=== PATIENT | male | born 1930 | race African-American/Black ===

== ENCOUNTER 2016-10-27 16:53 | Emergency (ER) | payer OTHER ==
[~2016-10-27] VITALS: Ht 170.2 cm; Wt 78.5 kg
[~2016-10-27 16:53] MED LIST: ANTACID650 MG PO; ASPIRIN325 PO; CALCITRIOL0.25 MCG PO; CELEXA 10 MG TA10 M1 PO; CELEXA10 MG PO; COREG3.125 MG PO; COREG6.25 MG PO; LANTUS; MAGNESIUM-VIT1 EACH PO; NORVASC10 MG PO; NOVOLOG100 UNIT/1; NOVOLOG100 UNIT/1 SQ; PROCRIT20000 UNIT IJ; PROTONIX40 M2 PO; RENAL CAPS SOFTG1 MG PO; TOPROL XL25 MG PO; VITAMIN D-32000 UNIT PO; ZOFRAN ODT4 MG PO
[2016-10-27 17:56] LABS: ABSOLUTE NEUTROPHILS 4.1 thou/uL (1.4-8.2); BASOPHILS 0.5 % (0.0-2.0); HEMATOCRIT 30.2 % (42.0-52.0); LYMPHOCYTES 16.1 % (24.0-44.0); MCH 28.1 pg (26.0-34.0); MCHC 33.1 % (28.0-37.0); MONOCYTES 7.6 % (1.0-8.0); PLATELET COUNT 234 thou/uL (150-400); POLYS 69.8 % (36.0-66.0); RBC 3.55 mil/uL (4.50-6.00); RDW 14.5 % (10.5-14.5); WBC 5.9 thou/uL (4.0-11.0)
[2016-10-27 18:00] LABS: MANUAL DIFF NO
[2016-10-27 18:05] LABS: CALCIUM 8.8 mg/dL (8.5-10.1); CREATININE 4.6 mg/dL (0.6-1.3); POTASSIUM 5.1 mmol/L (3.5-5.1)
[2016-10-27 18:46] LABS: URINE BILIRUBIN NEGATIVE (Negative); URINE BLOOD 2+ (Negative); URINE COLOR YELLOW; URINE GLUCOSE-RANDOM* 1+ (Negative); URINE KETONES NEGATIVE (Negative); URINE LEUKOCYTES-REFLEX 2+ (Negative); URINE PROTEIN (DIPSTICK) 2+ (Negative); URINE UROBILINOGEN 0.2 E.U./dl (0.2-1.0)
[2016-10-27 18:51] LABS: CASTS None Seen /LPF (None Seen); SQUAMOUS 0-3 Few /LPF (0-3)
[2016-10-27 18:52] LABS: CRYSTALS None Seen /LPF (None Seen); URINE RBC 3-10 Few /HPF (0-2)
[2016-10-27] MEDS ORDERED: CIPRO500 MG PO (19:05)
[2016-10-27 19:28] VITALS: BP 168/52
[2016-12-21] MEDS ORDERED: CELEXA10 MG PO (11:41)
[2016-12-21] MEDS ORDERED: NOVOLOG100 UNIT/1 SUBQ (11:42)
[2016-12-21] MEDS ORDERED: FOLIC ACID1 MG PO ×2 (11:42→11:47)
[2016-12-21] MEDS ORDERED: ANTACID650 MG PO (11:42)
[2016-12-21] MEDS ORDERED: MAGOX 400400 MG PO (11:44)
[2016-12-21] MEDS ORDERED: COREG6.25 MG PO (11:47)
[2016-12-21] MEDS ORDERED: PROTONIX40 M1 PO (11:47)
[2016-12-21] MEDS ORDERED: COSOPT EYE DROPS5 ML OP (11:48)
[2016-12-21] MEDS ORDERED: PRED FORTE 1% EY5 M1 OP (11:48)
[2016-12-21] MEDS ORDERED: XALATAN2.5 ML OPHTHALMIC (11:49)
[2016-12-21] MEDS ORDERED: ALPHAGAN P10 ML OP (11:49)
[2016-12-21] MEDS ORDERED: MAGNESIUM-VIT1 EACH PO (18:19)
[2016-12-21] MEDS ORDERED: CALCITRIOL0.25 MCG PO (18:20)
[2016-12-21] MEDS ORDERED: RENAL CAPS SOFTG1 MG PO (18:23)
[2016-12-24] MEDS ORDERED: LEVEMIR (15:22)
== END 2016-10-27 19:30 | disposition home or self-care (01) ==
LOC: ER 16:53
PROVIDERS: Emergency Medicine; Nurse Practitioner
DX: N39.0 Urinary tract infection, site not specified (principal); K21.9 Gastro-esophageal reflux disease without esophagitis; N28.9 Disorder of kidney and ureter, unspecified; E11.9 Type 2 diabetes mellitus without complications; I10 Essential (primary) hypertension; Z90.89 Acquired absence of other organs

== ENCOUNTER 2016-11-04 14:38 | Inpatient (IN) | payer OTHER ==
[~2016-11-04] VITALS: Ht 175.3 cm; Wt 77.6 kg
--- NOTE | ~2016-11-04 | EKG ---
[address] [address] ELECTROCARDIOGRAM REPORT Name: LOGAN BOWER [id number] Admission: 11/04/16 Attend Phys: Discharge: Date of : [birth year] Report #: [id number] THIS REPORT FOR: //name// [facility] ED Test Date: 2016-11-04 Test Time: 15:22:48 Pat Name: LOGAN BOWER Department: Room: Gender: Retail Manager: duane : 1930 Requested By: Viky Silva Order Number: [id number] MD: Ang Balderrama Measurements Intervals [place] Rate: 75 P: 55 AL: 212 QRS: 24 QRSD: 137 T: 99 QT: 457 QTc: 511 Interpretive Statements Sinus rhythm Borderline prolonged AL interval Nonspecific intraventricular conduction delay Nonspecific repol abnormality, diffuse leads No previous ECG available for comparison Electronically Signed On 11-04-2016 16:51:32 CLINICAL LABORATORY AIDES TEACHER by Ang Balderrama [email or web address] <ELECTRONICALLY SIGNED> By: Ang Balderrama MD 11/04/16 1651 1522 1522 MD RAHUL Smith
--- NOTE | ~2016-11-04 | EKG ---
[address] [address] ELECTROCARDIOGRAM REPORT Name: LOGAN BOWER Room #: 303- ADM IN M.R.#: [id number] Admission: 11/04/16 Attend Phys: Alyssa Sigala MD Discharge: Date of : [birth year]/17/[birth year] Report #: [id number] THIS REPORT FOR: //name// [facility] Test Date: 2016-11-05 Test Time: 09:21:35 Pat Name: LOGAN BOWER Department: Room: 303 Gender: M Ice Hockey Coach: graeme : 1930 Requested By: Alyssa Sigala Order Number: [id number] MD: Ang Balderrama Measurements Intervals [place] Rate: 75 P: MT: QRS: 9 QRSD: 96 T: 132 QT: 464 QTc: 519 Interpretive Statements Normal sinus rhythm No ischemia Electronically Signed On 11-05-2016 14:20:57 CRIMINAL RECORDS TECHNICIAN by Ang Balderrama [email or web address] <ELECTRONICALLY SIGNED> By: Ang Balderrama MD 11/05/16 1420 0921 0921 MD RAHUL Smith
--- NOTE | ~2016-11-04 | S ---
[facility] [address] [address] SURGICAL PATH RPT PROCEDURE Name: CHRIS OSMANTARAS Fang Room #: 303-P DIS IN M.R.#: [id number] Admission: 11/04/16 Date of : [birth year] Discharge: 11/05/16 Report #: [id number] Path Case #: [id number] PATHOLOGY REPORT COLLECTION DATE: 12/23/2016 RECEIVED DATE: 12/23/2016 SUBMITTING PHYS: Dr. Becca Corey OTHER PHYS: Dr. Alyssa Gilmore SPECIMEN(S) RECEIVED: A.Gastric polyp B.Random gastric bx - distal C.Random gastric bx - proximal * * * * * * * * * * * * FINAL DIAGNOSIS: A. Polyp, gastric polyp, endoscopic biopsy: - Compatible with a hyperplastic and fundic gland polyp. - Negative for dysplasia. B. Gastric mucosa, distal random gastric, endoscopic biopsy: - Mild reactive gastropathy. - One fragment compatible with a fundic gland polyp. - Negative for intestinal metaplasia or atrophy. - Negative for Helicobacter pylori. C. Gastric mucosa, proximal random gastric, endoscopic biopsy: - Dilated fundic glands, compatible with fundic gland polyp. - One fragment showing hyperplastic changes along with mild reactive gastropathy. - Negative for intestinal metaplasia or atrophy. - Negative for Helicobacter pylori. COMMENT: Helicobacter pylori immunohistochemical stain performed on block B1 negative. Helicobacter pylori immunohistochemical stain performed on block C1 negative. (IUV:brennan; d/t: 12/24/2016) PATHOLOGIST: Germaine Cartagena M.D. REPORT ELECTRONICALLY SIGNED BY: Germaine Cartagena M.D. DATE/TIME: 12/24/2016 14:49 * * * * * * * * * * * * GROSS PATHOLOGY: [address] [address] SURGICAL PATH RPT PROCEDURE Name: JOSI OSMANMARINA Fang Room #: 303-P [facility] IN [facility].#: [id number] Admission: 11/04/16 Date of : [birth year] Discharge: 11/05/16 Report #: [id number] Path Case #: [id number] A. Received in formalin labeled "Logan Osman Sr and gastric polyp," is a segment of knutson soft tissue measuring 0.5 cm in maximum dimension. The specimen is submitted entirely in cassette A1. B. Received in formalin labeled "Logan Osman Sr and is distal random gastric bx," are 6 segments of knutson soft tissue measuring 2.3 x 0.3 x 0.2 cm in aggregate dimensions and ranging from 0.2 to 0.7 cm in maximum dimension. The specimen is submitted entirely in cassette B1. C. Received in formalin labeled "Logan Osman Sr and proximal random gastric bx," are 2 segments of knutson soft tissue measuring 1.0 x 0.2 x 0.2 cm in aggregate dimensions and measuring 0.2 and 0.8 cm in maximum dimension. The specimen is submitted entirely in cassette C1. (TTL; 12/23/2016) CLINICAL HISTORY: Pre-op diagnosis: Hematemesis post-op diagnosis: Duodenal AVM, gastric AVM, gastric INITIAL CPT CODE(S): A; 61493 B; 00809, 31485 C; 70766, 99270 Professional services performed by [facility] at [facility] [address], [place] [address] Technical services performed by [facility] at [address] [place] [address], [address], [place] [address]. [facility] [address] [place] [address] PHONE: [phone] DIRECTOR: Roman Ricketts M.D. * * * END OF REPORT * * *
--- NOTE | ~2016-11-04 | H ---
[facility] [place] [address] [place] [address] HISTORY AND PHYSICAL Name: BOWERCHRISLOGAN P Room #: 303-P ADM IN M.R.#: [id number] Admission: 11/04/16 Attend Phys: Alyssa Sigala MD Discharge: Date of : [birth year]/17/[birth year] Report #: [id number] THIS REPORT FOR: //name// CC: Lorne Sigala DATE OF SERVICE: 11/04/2016 TYPE OF DICTATION: Admission H and P after [id number]-vv-vuik encounter. DATE OF SERVICE: I did see the patient and examined him on the day of admission, 11/04/2016. CHIEF COMPLAINT: Mental status change. HISTORY OF PRESENT ILLNESS: An 85-year-old male who has multiple medical problems, was brought to the ER by his daughter. She stated that he has some changes in his mentality, he is not responding well to her like before, he is not able to talk. She suspected that he may have a CVA. She stated that the patient has a chronic kidney disease and he is refusing dialysis until now, and he had UTI a week ago and was treated for that. He responded very well, but he started to have some mental status change recently. The patient is not so talkative. He is just sleepy, but he denies any pain. He is not interactive. REVIEW OF SYSTEMS: Except that mentioned in HPI, all other systems are negative. PAST MEDICAL HISTORY: Includes CKD stage 5, repeated UTIs, hypertension, depression, B12 deficiency, insulin dependent diabetes mellitus. MEDICATIONS: See admission reconciliation sheet. ALLERGIES: No known drug allergies. SOCIAL HISTORY: He lives with his daughter. He does not smoke, drink or use any illicit drugs. PHYSICAL EXAMINATION: GENERAL: He is sleepy. VITAL SIGNS: Temperature 36.6, pulse 80, respirations 14, blood pressure 193/95. HEENT: PERRLA. Intact extraocular muscles. No icterus. NECK: Supple, no JVD, no bruit, no thyroid. CHEST: Good air entry both sides. Normal respiratory effort. CARDIOVASCULAR: Regular rate and rhythm. No murmur, rub or gallop. ABDOMEN: Lax, nontender. Positive bowel sounds. No organomegaly appreciated. [facility] [address] [place] [address] HISTORY AND PHYSICAL Name: LOGAN BOWER Room #: [address] [place] [address] [place] [facility].#: [id number] Admission: 11/04/16 Attend Phys: Alyssa Sigala MD Discharge: Date of : [birth year]/17/[birth year] Report #: [id number] EXTREMITIES: No cyanosis, clubbing or edema. NEUROLOGIC: He has weakness of the lower extremities. The patient is wheelchair bound. LABORATORY DATA: Urine is negative but there are some bacteria. White count 12.9, hemoglobin 9.7, hematocrit 29.7, platelets 218 with sodium 136, potassium 5.3, chloride 102, carbon dioxide 28, anion gap 6, BUN 55, creatinine 5.4, glucose , calcium 8.9. AST 19, ALT 22. Troponin less than 0.04. ProBNP is . Total protein 6.5, albumin 3.2. ASSESSMENT AND PLAN: 1. Mental status change. The etiology is not clear, but it can be secondary to his kidney function or hidden infection, so we are going to admit the patient to telemetry, monitor him closely, and we are going to follow his status. 2. Chronic kidney disease stage 5. His creatinine is 5.3. The patient declines any hemodialysis until now, so we are going to consult our security advisor to see the patient and evaluate him. 3. Hyperkalemia. His potassium is 5.3. We are going to recheck the level and treat him as needed. 4. The patient is DNR. 5. Gastrointestinal and deep venous thrombosis prophylaxis. <ELECTRONICALLY SIGNED> By: Alyssa Sigala MD 11/05/16 1438 15 0115 Alyssa Sigala MD /nt
--- NOTE | ~2016-11-04 | D ---
[facility] [place] [address] DISCHARGE SUMMARY Name: SATHISHCHRISLOGAN P Room #: 303-P [facility] IN ..#: [id number] Admission: 11/04/16 Attend Phys: Alyssa Sigala MD Discharge: 11/05/16 Date of : [birth year] Report #: [id number] THIS REPORT FOR: //name// CC: Lorne Sigala DATE OF SERVICE: 11/05/2016 TYPE OF DICTATION: Discharge summary. After vebm-[id number]-qpru encounter, I did see the patient and examined him on the day of discharge, 11/05/2016. DISCHARGE DIAGNOSES: 1. Mental status change. 2. End-stage renal disease. 3. Repeated urinary tract infection. 4. Hypertension. 5. Depression. 6. B12 deficiency. 7. Insulin-dependent diabetes mellitus. DISCHARGE MEDICATIONS: See discharge summary. HOSPITAL COURSE: The patient was admitted to the hospital secondary to mental status change which was seen by his daughter ____ during the last week. The patient had UTI a week ago, treated, became well and then he started to be drowsy and lethargic. The patient was admitted to the hospital. His labs were negative except for end-stage renal disease with creatinine 5.3, but at this point the daughter expressed her dad's wishes not to be dialyzed and to at home. So, she opted to go home with hospice for her dad and not to do any aggressive treatments or aggressive thing. DISPOSITION: So, the patient is going home on hospice service. <ELECTRONICALLY SIGNED> By: Alyssa Sigala MD 11/06/16 0930 1302 1356 Alyssa Sigala MD /nt
--- NOTE | ~2016-11-04 | HC ---
[facility] [place] [address] CONSULTATION Name: LOGAN BOWER Leoncio Room #: 303-P ADM IN M.R.#: [id number] Admission: 11/04/16 Attend Phys: Alyssa Sigala MD Discharge: Date of : [birth year]/17/[birth year] Report #: [id number] THIS REPORT FOR: //name// CC: Lorne Sigala DATE OF SERVICE: 11/05/2016 REASON FOR CONSULTATION: Stage 5 chronic kidney disease. HISTORY OF PRESENT ILLNESS: This is an 85-year-old male who has a long-term history of chronic kidney disease, which has gradually progressed. He has been followed in our office for many years by Lyle Gray MD. I have reviewed Dr. Gray's records. I would also note that I had seen the patient in consultation here at [facility] in 07/2015. The current history is obtained from the patient's daughter who was at the bedside. He is poorly responsive and unable to provide me any history. The daughter tells me he has been slowly declining over the past couple of months. He has been less active. He has been more somnolent. Although he occasionally awakens, over the past week or 2, he has not been able to carry on any conversations. Intake of food and fluids has been decreased. He did have problems a couple of weeks ago with some gross hematuria and urinary tract infection with findings of E. coli. He went through a course of Cipro and hematuria has cleared up. He is still voiding some urine. His daughter also describes to me episodes of myoclonic jerking that is episodic. She has also noticed some irregular, respirations. The daughter is very clear in stating that she has had previous conversations with her father about his wishes. She also provides a healthcare directive. He has for a very long period of time insisted that he did not want to undergo hemodialysis therapy or dialysis therapy of any kind. He has wished for comfort care at the end of life. He had told her he wants to at home with the help of hospice for comfort. PAST MEDICAL HISTORY: Progressive chronic kidney disease as noted above, longstanding hypertension, type 2 diabetes mellitus that has been going on for decades. He had extensive peripheral neuropathy. He has had prostate cancer with previous treatment of that, prior GI bleeds with AVMs. MEDICATIONS ON ADMISSION: Calcitriol 0.25 mcg daily, carvedilol 6.25 mg b.i.d., recent Cipro which has now completed, citalopram 20 mg daily, multivitamin daily, Lantus and NovoLog insulin, multiple eyedrops, pantoprazole 40 mg daily and some sodium bicarbonate 650 mg b.i.d. [address] [address] CONSULTATION Name: LOGAN BOWER Room #: 303-P [facility] IN M.R.#: [id number] Admission: 11/04/16 Attend Phys: Alyssa Sigala MD Discharge: Date of : [birth year]/17/[birth year] Report #: [id number] ALLERGIES: No known medical allergies. FAMILY HISTORY: Noncontributory in this situation. SOCIAL HISTORY: The patient is a . He lives in [place], [place]. His daughter lives with him and as a guest for the past 12 or 13 years, she has provided a lot of care for him recently. REVIEW OF SYSTEMS: Basically as per the history of present illness. PHYSICAL EXAMINATION: GENERAL: Elderly appearing male who is poorly responsive and appears comfortable. He is showing Zander-Avelar respirations. VITAL SIGNS: Blood pressure 137/92, heart rate 82, temperature 98.8, oxygen saturation 96%. He has somewhat of a shallow complexion. HEENT: Pupils are 2 mm and reactive. Sclerae nonicteric. Oral mucosa is dry. CHEST: Shows symmetrical breath sounds, again change in respiratory pattern as noted above. HEART: Has a regular rate and rhythm. ABDOMEN: Soft and nontender. EXTREMITIES: Show no peripheral edema. They are warm and perfused at this time. LABORATORY DATA: Sodium 139, potassium 4.7, chloride 104, bicarbonate 25, BUN 51, creatinine 5.3, glucose 78, calcium 8.6. White count 5.4, hemoglobin 9.3, hematocrit 28.2, platelets 220,000. Urinalysis on admission showed 10-20 red cells, no white cells. ASSESSMENT: Chronic kidney disease stage 5. He is progressing through uremia. I have spent a long time talking with the daughter about this change. He is showing changes in his mental status as well as his sensorium. He has developed Zander-Avelar respirations. I have expressed to her that he is in the process of his body starting to shutdown. Although she is distraught of this, she expresses understanding. She is very firm in stating that she wants to abide by his wishes to institute hospice care and get him back home, so he can peacefully at home. I have expressed to her support of these plans. We have talked about various things that she will be expected to see as he goes through this dying process including the myoclonic jerks, change in respiratory pattern, intermittent periods of potential lucidity followed by further episodes of somnolence and eventually his heart and breathing stopping altogether. She asked about doing any other tests or evaluations and I stated that in this sort of a situation that they would not provide him any benefit and only put him through additional potentially difficult situations in getting additional tests at this point. [facility] [address] [place] [address] CONSULTATION Name: CHRIS BOWERTARAS Fang Room #: 303-P ADM IN .R.#: [id number] Admission: 11/04/16 Attend Phys: Alyssa Sigala MD Discharge: Date of : [birth year]/17/[birth year] Report #: [id number] PLAN: I put in a consult for hospice care. I will talk to his hospitalist. I will also transfer this message to the office staff, so that they are aware and hopefully, we can get him home and get him comfortable with hospice management. <ELECTRONICALLY SIGNED> By: Davidson Donald MD 11/05/16 1625 1226 1303 Davidson Donald MD /nt
[~2016-11-04 14:38] MED LIST changes: +CIPRO500 MG PO
[2016-11-04 14:40] VITALS: BP 191/83
[2016-11-04 16:06] LABS: ABSOLUTE NEUTROPHILS 3.5 thou/uL (1.4-8.2); BASOPHILS 0.8 % (0.0-2.0); EOSINOPHILS 8.2 % (0.0-3.0); HEMATOCRIT 29.7 % (42.0-52.0); HEMOGLOBIN 9.7 gm/dL (14.0-18.0); LYMPHOCYTES 20.5 % (24.0-44.0); MANUAL DIFF NO; MCH 27.9 pg (26.0-34.0); MCHC 32.7 % (28.0-37.0); MCV 85.1 fL (80.0-100.0); MONOCYTES 11.1 % (1.0-8.0); PLATELET COUNT 218 thou/uL (150-400); POLYS 59.4 % (36.0-66.0); RBC 3.49 mil/uL (4.50-6.00); RDW 14.6 % (10.5-14.5); WBC 5.9 thou/uL (4.0-11.0)
[2016-11-04 16:17] LABS: CALCIUM 8.9 mg/dL (8.5-10.1); CREATININE 5.4 mg/dL (0.6-1.3); POTASSIUM 5.3 mmol/L (3.5-5.1)
[2016-11-04 16:22] LABS: ALBUMIN 3.2 g/dL (3.4-5.0); TOTAL BILIRUBIN 0.2 mg/dL (<0.1-1.0); TOTAL PROTEIN 6.9 g/dL (6.4-8.2)
[2016-11-04 16:41] LABS: URINE BILIRUBIN NEGATIVE (Negative); URINE BLOOD 2+ (Negative); URINE COLOR YELLOW; URINE GLUCOSE-RANDOM* NEGATIVE (Negative); URINE KETONES NEGATIVE (Negative); URINE NITRITE NEGATIVE (Negative); URINE PROTEIN (DIPSTICK) 1+ (Negative); URINE UROBILINOGEN 0.2 E.U./dl (0.2-1.0)
[2016-11-04 16:52] LABS: BACTERIA 1-9 Few /HPF (None Seen); CASTS None Seen /LPF (None Seen); CRYSTALS None Seen /LPF (None Seen); SQUAMOUS None Seen /LPF (0-3); URINE WBC None Seen /HPF (0-5)
[2016-11-04 17:42] LABS: NT-PRO BRAIN NAT PEPTIDE 3654 pg/mL (<300); TROPONIN-I < 0.04 ng/mL (<0.04-0.07)
[2016-11-04 18:15] VITALS: BP 193/104
[2016-11-04 19:10] VITALS: BP 199/80
[2016-11-04] MEDS ORDERED: PANTOPRAZOLE SO40 M1 PO (22:29)
[2016-11-04] MEDS ORDERED: RENAL CAPS SOFTG1 MG (22:31)
[2016-11-04] MEDS ORDERED: COSOPT PF EYE1 EACH OPHTHALMIC (22:33)
[2016-11-04] MEDS ORDERED: PRED FORTE 1% EY5 M1 OPHTHALMIC (22:35)
[2016-11-04] MEDS ORDERED: XALATAN2.5 ML OPHTHALMIC (22:37)
[2016-11-04] MEDS ORDERED: ALPHAGAN P10 ML OPHTHALMIC (22:38)
[2016-11-04] MEDS ORDERED: LANTUSSOLASTAR SUBQ (22:40)
[2016-11-04 23:34] VITALS: BP 178/75
[2016-11-05] VITALS (7 sets, daily range): BP systolic 130–177; BP diastolic 46–92
[2016-11-05 05:44] LABS: HEMATOCRIT 28.2 % (42.0-52.0); HEMOGLOBIN 9.3 gm/dL (14.0-18.0); MCH 28.4 pg (26.0-34.0); MCHC 33.2 % (28.0-37.0); MCV 85.5 fL (80.0-100.0); RBC 3.3 mil/uL (4.50-6.00); RDW 14.6 % (10.5-14.5); WBC 5.4 thou/uL (4.0-11.0)
[2016-11-05 06:16] LABS: CALCIUM 8.6 mg/dL (8.5-10.1); CREATININE 5.3 mg/dL (0.6-1.3); POTASSIUM 4.7 mmol/L (3.5-5.1)
[2016-12-21] MEDS ORDERED: CELEXA10 MG PO (11:41)
[2016-12-21] MEDS ORDERED: ANTACID650 MG PO (11:42)
[2016-12-21] MEDS ORDERED: FOLIC ACID1 MG PO ×2 (11:42→11:47)
[2016-12-21] MEDS ORDERED: NOVOLOG100 UNIT/1 SUBQ (11:42)
[2016-12-21] MEDS ORDERED: MAGOX 400400 MG PO (11:44)
[2016-12-21] MEDS ORDERED: COREG6.25 MG PO (11:47)
[2016-12-21] MEDS ORDERED: PROTONIX40 M1 PO (11:47)
[2016-12-21] MEDS ORDERED: COSOPT EYE DROPS5 ML OP (11:48)
[2016-12-21] MEDS ORDERED: PRED FORTE 1% EY5 M1 OP (11:48)
[2016-12-21] MEDS ORDERED: XALATAN2.5 ML OPHTHALMIC (11:49)
[2016-12-21] MEDS ORDERED: ALPHAGAN P10 ML OP (11:49)
[2016-12-21] MEDS ORDERED: MAGNESIUM-VIT1 EACH PO (18:19)
[2016-12-21] MEDS ORDERED: CALCITRIOL0.25 MCG PO (18:20)
[2016-12-21] MEDS ORDERED: RENAL CAPS SOFTG1 MG PO (18:23)
[2016-12-24] MEDS ORDERED: LEVEMIR (15:22)
== END 2016-11-05 16:41 | disposition hospice, home (50) | DRG 682 ==
LOC: ER 14:38 → 3N 17:25 → EROBS 17:25 → 3N 19:48
PROVIDERS: Hospitalist; Nurse Practitioner; Physician Assistant
DX: I12.0 Hypertensive chronic kidney disease with stage 5 chronic kidney disease or end stage renal disease (principal); N18.6 End stage renal disease; N39.0 Urinary tract infection, site not specified; E11.22 Type 2 diabetes mellitus with diabetic chronic kidney disease; Z66 Do not resuscitate; F32.9 Major depressive disorder, single episode, unspecified; E53.8 Deficiency of other specified B group vitamins; E87.5 Hyperkalemia; Z99.2 Dependence on renal dialysis
CPT/HCPCS: 10096